=== PATIENT | female | born 1955 | race Caucasian/White ===

== ENCOUNTER → 2017-02-15 | Day surgery (SDC) | payer BC ==
[~2017-02-15] MED LIST: FOLIC ACID1 MG PO; METHOTREXATE2.5 MG PO; METOPROLOL SUCC50 MG PO; OMEPRAZOLE20 M2 PO; TRIAMTERENE-HC1 EAC1 PO
--- NOTE | ~2017-02-15 | OR ---
Unit #: [id number] #: [id number] Patient: BILLY DORADO [id number] [address] [address] [id number] O MR#: [id number] NAME: BILLY DORADO ROOM: Date of Procedure: 02/15/2017 Admission Date: 02/15/2017 Surgeon: Enoch Cabrera M.D. : 1955 Attending Physician: Enoch Cabrera M.D. Referring Physician: Enoch Cabrera M.D. Primary Care Physician: Patricia Jones M.D. PROCEDURE OPERATIVE NOTE PREOPERATIVE DIAGNOSIS Screening colonoscopy. POSTOPERATIVE DIAGNOSIS Screening colonoscopy. PROCEDURE PERFORMED Colonoscopy to the cecum. ANESTHESIA Monitored anesthesia care. FINDINGS The patient had normal colonoscopy except for mild internal hemorrhoids. SPECIMENS None. COMPLICATIONS None apparent. The patient tolerated the procedure well. INDICATION The patient is a 61-year-old white female who has not had a screening colonoscopy for approximately 12 years. She presents at this time for evaluation by colonoscopy. PROCEDURE After obtaining informed consent, the patient was brought to he endoscopy suite and after adequate monitored anesthesia care had the colonoscope placed through the anus and slowly advanced to the level of the cecum without difficult and with lumen always in view. The cecum was normal, as was the ileocecal valve. The ascending colon was normal as was the hepatic flexure, transverse colon, splenic flexure, descending colon, sigmoid colon and rectum. No diverticula were seen. On retroflexing in the rectum to the anorectal junction the patient was found to have some mild internal hemorrhoids. The scope was removed without difficulty . The patient tolerated the procedure well and went to the endoscopy suite recovery area in stable condition. RECOMMENDATIONS High-fiber diet, lots of liquids, tucks or wipes p.r.n. Follow up p.r.n. Unit #: [id number] #: [id number] Patient: BILLY DORADO Dictated by... Enoch Cabrera M.D. JPG/gz TD: 02/21/2017 10:30 JOB #: [id number] CC: [facility] Patricia Jones M.D. PROCEDURE OPERATIVE NOTE Page 1 of 1 X Enoch Cabrera MD PROCEDURE OPERATIVE NOTE
== END | disposition home or self-care (01) ==
LOC: COPS 10:55
PROVIDERS: Surgery
PROC: 0DJD8ZZ Inspection of Lower Intestinal Tract, Via Natural or Artificial Opening Endoscopic (ICD-10-PCS; principal; 2017-02-15 13:00)
DX: Z12.11 Encounter for screening for malignant neoplasm of colon (principal); K64.8 Other hemorrhoids; K21.9 Gastro-esophageal reflux disease without esophagitis; I10 Essential (primary) hypertension; M19.90 Unspecified osteoarthritis, unspecified site; M06.9 Rheumatoid arthritis, unspecified; M79.673 Pain in unspecified foot; R32 Unspecified urinary incontinence; Z79.899 Other long term (current) drug therapy; J30.2 Other seasonal allergic rhinitis; Z72.89 Other problems related to lifestyle; Z80.9 Family history of malignant neoplasm, unspecified; Z88.2 Allergy status to sulfonamides; Z88.0 Allergy status to penicillin
CPT/HCPCS: J2250